=== PATIENT | female | born 1995 | race Caucasian/White ===

== ENCOUNTER 2018-12-11 03:44 | Emergency (ER) | payer BC, OTHER ==
[~2018-12-11] VITALS: Ht 157.5 cm; Wt 49.0 kg
[2018-12-11 07:30] VITALS: BP 125/62
== END 2018-12-11 07:39 | disposition home or self-care (01) ==
LOC: ER 03:44
DX: F41.9 Anxiety disorder, unspecified (principal); F32.9 Major depressive disorder, single episode, unspecified
CPT/HCPCS: 93005; 99284